=== PATIENT | male | born 1965 | race Caucasian/White ===

== ENCOUNTER 2019-02-20 10:25 | Emergency (ER) | payer OTHER ==
[~2019-02-20] VITALS: Ht 167.6 cm; Wt 83.9 kg
[2019-02-20 10:30] VITALS: Ht 167.6 cm; Wt 83.9 kg
[2019-02-20 11:36] LABS: BASOPHIL % 0.6 % (0-2); PLATELET COUNT 153 x10^3mcL (130-400); RED CELL DISTRIBUTION WIDTH 12.9 % (11.5-14.5)
[2019-02-20 11:48] LABS: CARBON DIOXIDE 26.8 mmol/L (21-32); CHLORIDE SERUM 105 mmol/L (98-107); GFR1 > 60 mL/min; GLUCOSE SERUM 186 mg/dL (74-106); POTASSIUM SERUM 5.3 mmol/L (3.5-5.1); SODIUM SERUM 141 mmol/L (136-145)
[2019-02-20 11:52] LABS: ALBUMIN 3.9 g/dL (3.4-5.0); ALKALINE PHOSPHATASE 103 U/L (46-116); ALT/SGPT 52 U/L (16-63); AST/SGOT 34 U/L (15-37); BILIRUBIN TOTAL 0.56 mg/dL (0.20-1.00); HDL CHOLESTEROL 46 mg/dL (40-60); LIPASE 154 IU/L (73-393); TOTAL PROTEIN, SERUM 7.5 g/dL (6.4-8.2)
[2019-02-20 11:55] LABS: CHOLESTEROL 226 mg/dL (<200)
[2019-02-20 13:04] LABS: microscopic required? NO
[2019-02-20 13:26] LABS: UA SPECIFIC GRAVITY 1.025 (1.005-1.035); urine erythrocyte NEGATIVE (NEGATIVE)
[2019-02-20 13:31] LABS: AMPHETAMINE QUAL UR NONE DETECTED (See below)
[2019-02-20 15:56] VITALS: BP 153/103
== END 2019-02-20 15:56 | disposition home or self-care (01) ==
LOC: ED 10:25
PROVIDERS: Emergency Medicine
DX: M54.12 Radiculopathy, cervical region (principal); F41.9 Anxiety disorder, unspecified
CPT/HCPCS: 36415; 83880; J1100; J1885